=== PATIENT | female | born 1980 | race Caucasian/White ===

== ENCOUNTER 2023-06-25 08:00 | Outpatient (CLI) | payer OTHER ==
[~2023-06-25] VITALS: Ht 157.5 cm; Wt 112.0 kg
== END 2023-06-25 15:20 | disposition home or self-care (01) ==
LOC: SLB 08:00 → EDSTATUS 06-27 07:30
PROVIDERS: ATTEND Specialist
DX: Z01.812 Encounter for preprocedural laboratory examination (principal); N92.0 Excessive and frequent menstruation with regular cycle; D25.9 Leiomyoma of uterus, unspecified; D50.0 Iron deficiency anemia secondary to blood loss (chronic); N85.2 Hypertrophy of uterus; R93.89 Abnormal findings on diagnostic imaging of other specified body structures
CPT/HCPCS: 87081

== ENCOUNTER 2023-08-22 06:06 | Day surgery (SDC) | payer BC ==
[~2023-08-22] VITALS: Ht 157.5 cm; Wt 113.9 kg
[2023-08-22] MEDS ORDERED: ceFAZolin SODIUM 2 GM in D5W 50 ML IV ONE (07:00)
[2023-08-22] MEDS ORDERED: fentaNYL CITRATE/PF 100 MCG/2 ML AMP ONE ×2 (07:40→11:33)
[2023-08-22] MEDS ORDERED: ACETAMINOPHEN I.V. 1000 MG 100 ML IV ONE (07:41)
[2023-08-22] MEDS ORDERED: MIDAZOLAM HCL 2 MG/2 ML VIAL (VERSED) ONE (07:41)
[2023-08-22] MEDS ORDERED: DEXAMETHASONE SOD PHOSPHATE 4 MG/ML VIAL ONE (08:25)
[2023-08-22] MEDS ORDERED: BUPIVACAINE /PF 0.5% 30 ML VIAL ONE (08:25)
[2023-08-22] MEDS ORDERED: NS 1000 ML IV.SOLN IV ONE (08:25)
[2023-08-22] MEDS ORDERED: PROPOFOL 200MG/ 20ML VIAL (DIPRIVAN) IV ONE (08:25)
[2023-08-22] MEDS ORDERED: SEVOFLURANE 15 MIN GAS INH ONE (08:25)
[2023-08-22] MEDS ORDERED: PHENYLEPHRINE HCL 10 MG/ML VIAL (NEOSYNEPHRINE) ONE (08:25)
[2023-08-22] MEDS ORDERED: ROCURONIUM BROMIDE 10 MG/ML (ZEMURON) ONE (08:25)
[2023-08-22] MEDS ORDERED: NS IRRIG SOLN 1000 ML IR ONE (08:25)
[2023-08-22] MEDS ORDERED: fentaNYL CITRATE/PF 100 MCG/2 ML AMP IVP PRN ×2 (09:15)
[2023-08-22] MEDS ORDERED: ONDANSETRON HCL 4 MG/2 ML VIAL IVP PRN ×2 (09:15→11:00)
[2023-08-22] MEDS ORDERED: LR 1,000 ML IV ONE (09:15)
[2023-08-22] MEDS ORDERED: OXYCODONE/ACETAMINOPHEN 5-325 TABLET PO PRN ×2 (11:00)
[2023-08-22] MEDS ORDERED: HYDROcodone/ACETAMIN 5-325 MG TAB (NORCO/ VICODIN) PO PRN (11:00)
[2023-08-22] MEDS ORDERED: HYDROmorphone 1 MG/ML INJ. CARTRIDGE ONE (11:16)
[2023-08-22] MEDS ORDERED: ONDANSETRON HCL 4 MG/2 ML VIAL ONE (11:16)
[2023-08-22] MEDS: HYDROmorphone 1 MG/ML INJ. CARTRIDGE IVP PRN ×2 (11:26→12:56)
[2023-08-22 11:30] VITALS: O2SAT 98
[2023-08-22] MEDS ORDERED: OXYCODONE/ACETAMINOPHEN 5-325 TABLET ONE ×2 (13:22→13:25)
[2023-08-22 15:51] VITALS: BP_SYST 127; PULSE 96; RESP 16; TEMP 97.4
== END 2023-08-22 16:55 | disposition home or self-care (01) ==
LOC: SMU 06:06 → SDS 06:06
PROVIDERS: ATTEND Specialist
DX: N92.1 Excessive and frequent menstruation with irregular cycle (principal); D25.1 Intramural leiomyoma of uterus; N72 Inflammatory disease of cervix uteri; N80.03 Adenomyosis of the uterus; R93.89 Abnormal findings on diagnostic imaging of other specified body structures; D50.0 Iron deficiency anemia secondary to blood loss (chronic); E66.01 Morbid (severe) obesity due to excess calories; F41.9 Anxiety disorder, unspecified; N94.12 Deep dyspareunia; Z79.899 Other long term (current) drug therapy; Z98.890 Other specified postprocedural states
CPT/HCPCS: 87081; 58552; 88307; S2900; J3490; J1100; J3465; J2405; J2370; J2704; J3010; J1170; J7060; J7030; C1727; J0131; E0190